=== PATIENT | female | born 1985 ===

== ENCOUNTER 2018-04-03 19:52 | Emergency (ER) | payer OTHER ==
[2018-04-03 20:33] LABS: SQUAMOUS EPITHIAL 7 /hpf (0-5); URINE BACTERIA OCC (<OCC); URINE BILIRUBIN NEGATIVE (NEGATIVE); URINE BLOOD 1+ (NEGATIVE); URINE CLARITY Hazy (Clear); URINE COLOR Yellow (YELLOW); URINE GLUCOSE (UA) NORMAL (Normal); URINE PROTEIN 1+ mg/dL (NEGATIVE); URINE UROBILINOGEN NORMAL mg/dL (0.2-1.0)
[2018-04-03 20:39] LABS: URINE LEUKOCYTE ESTERASE 2+ Leu/uL (Negative)
[2018-04-03] MEDS ORDERED: cefTRIAXone (Rocephin) 250 mg Inj IM STA (21:18)
--- NOTE | 2018-04-03 21:47 | C.PDOC ---
History Of Present Illness 32 y/o female , with iud for almost one year, c/o dyspareunia x 3 months with left pelvic pain and today with dysuria x 1 days. denies vaginal discharge. sts she has one partner. last felt iud string in September. no fever or chills. no nausea or vomiting. <Laura Amaya - Last Filed: 04/03/18 22:38> History Per: Patient History/Exam Limitations: no limitations Onset/Duration Of Symptoms: Days (90) Current Symptoms Are (Timing): Still Present Severity: Moderate Quality Of Discomfort: Unable To Describe Associated Symptoms: Urinary Symptoms. denies: Fever, Chills, Nausea, Vomiting, Loss Of Appetite <Laura Amaya - Last Filed: 04/03/18 22:38> <Guerita White - Last Filed: 04/03/18 23:47> Time Seen by Provider: 04/03/18 20:16 Chief Complaint (Nursing): Female Genitourinary Past Medical History Reviewed: Historical Data, Nursing Documentation, Vital Signs Vital Signs: Last Vital Signs Temp 98.4 F 04/03/18 20:01 Pulse 95 H 04/03/18 20:01 Resp 20 04/03/18 20:01 BP 104/74 04/03/18 20:01 Pulse Ox 100 04/03/18 20:01 - Medical History PMH: Migraine Family History: States: Unknown Family Hx - Social History Hx Alcohol Use: No Hx Substance Use: No <Laura Amaya - Last Filed: 04/03/18 22:38> Vital Signs: Last Vital Signs Temp 98 F 04/03/18 23:42 Pulse 78 04/03/18 23:42 Resp 18 04/03/18 23:42 BP 100/70 04/03/18 23:42 Pulse Ox 100 04/03/18 23:42 <Guerita White - Last Filed: 04/03/18 23:47> Review Of Systems Constitutional: Negative for: Fever, Chills Cardiovascular: Negative for: Chest Pain Respiratory: Negative for: Cough, Shortness of Breath Gastrointestinal: Positive for: Abdominal Pain. Negative for: Nausea, Vomiting Skin: Negative for: Rash Neurological: Negative for: Weakness, Numbness <Laura Amaay - Last Filed: 04/03/18 22:38> Physical Exam - Physical Exam Appears: Non-toxic, No Acute Distress Skin: Warm, Dry Head: Atraumatic, Normacephalic Oral Mucosa: Moist Neck: Supple Gastrointestinal/Abdominal: Bowel Sounds, Soft, No Tenderness, No Guarding, No Rebound Pelvic: Normal External Exam, Vaginal Discharge (yellowish thick ), Cervical Motion Tenderness, Adnexal Tenderness (left), Other (no iud string seen) Neurological/Psych: Oriented x3, Normal Speech, Normal Cognition <Laura Amaya - Last Filed: 04/03/18 22:38> ED Course And Treatment O2 Sat by Pulse Oximetry: 100 <Laura Amaya - Last Filed: 04/03/18 22:38> Medical Decision Making Medical Decision Making: pt with iud with dyspareunia, yellow d/c in vault with cmt. ua with signs of infection. discussed with Dr Dave Gibson, nc manager ; recommends pelvic us to eval adnexal tenderness and look for iud, as well as to tx for sti Dr White to disposition pt after sonogram resulted. <Laura Amaya - Last Filed: 04/03/18 22:38> Disposition Counseled Patient/Family Regarding: Studies Performed, Diagnosis, Need For Followup, Rx Given - Disposition Disposition Time: 22:38 (\) <Laura Amaya - Last Filed: 04/03/18 22:38> Counseled Patient/Family Regarding: Studies Performed, Diagnosis, Need For Followup, Rx Given - Disposition Disposition Time: 23:46 <Guerita White - Last Filed: 04/03/18 23:47> - Disposition Referrals: [facility] [Outside] Disposition: HOME/ ROUTINE Condition: GOOD Additional Instructions: Debe seguir con la ginecologa en [place] la prxima semana. Debe usar un mtodo anticonceptivo adicional hasta que el DIU sea revisado por un gineclogo. Jose Cruz los medicamentos segn lo prescrito. Beber ms lquidos. Recomiende las relaciones sexuales homosexuales hasta que las rosa el gineclogo, y tambin debe consultar hollis mdico. You need to follow up with gynecology at [place] in the next week. You need to use an additional form of control until IUD checked by element setter. Take medications as prescribed.Drink increased fluids. Recommend nosexual intercourse until seen by element setter- and cici de la garza be checked out as well. Prescriptions: Fluconazole [Diflucan] 150 mg PO ONCE #1 tab Ibuprofen [Motrin] 600 mg PO TID #30 tab Nitrofurantoin Macrocrystals [Macrobid] 100 mg PO BID #14 cap Instructions: Urinary Tract Infection, Adult (DC), Acute Pelvic Pain (DC) Forms: Gen Discharge Inst Kittitian, [facility] (Kittitian) - Clinical Impression Clinical Impression: UTI (urinary tract infection), Cervicitis, Pelvic pain
[2018-04-04 01:12] VITALS: BP 100/70; PULSE 78; RESP 18; TEMP 98; O2SAT 100
--- NOTE | 2018-04-04 10:53 | US ---
Date of service: 04/03/2018 HISTORY: Left holli pelvic pain. Nonvisualization IUD strings. LMP 02/25/2018. COMPARISON: None available. TECHNIQUE: Transvaginal only. Real -time technique with 2D, duplex and color Doppler FINDINGS: UTERUS: Measures 3.8 x 4.1 x 7.4 cm. Normal in size and appearance. No fibroid or other mass lesion seen. ENDOMETRIUM: Measures 12.3 all mm in diameter. Intrauterine contraceptive device (IUD) identified CERVIX: No cervical abnormality identified. RIGHT OVARY: Measures 2.1 x 2.7 x 2.8 cm. No solid mass. Normal flow. Subcentimeter cyst 6 x 7 mm. LEFT OVARY: Measures 1.7 x 2.2 x 2.6 cm. No solid mass. Normal flow. Simple cyst 8 x 10 mm. FREE FLUID: No significant free fluid noted. OTHER FINDINGS: None. IMPRESSION: Confirmation of IUD centrally within the endometrial canal. Additional benign and/or incidental findings described above. Concordant results (preliminary interpretation) provided by [employer]. Procedure Completed: 22:25 Preliminary Report: Dictated and Authenticated: 23:43. Final Interpretation: 10:49. April 04, 2018
== END 2018-04-03 23:51 | disposition home or self-care (01) ==
LOC: C.ER 19:52
DX: N39.0 Urinary tract infection, site not specified (principal); N72 Inflammatory disease of cervix uteri; R10.2 Pelvic and perineal pain
CPT/HCPCS: 76830; 76856; 81001; 87070; 87086; 87491; 87591; 96372; 99284; J0696

== ENCOUNTER 2018-05-09 10:05 | Emergency (ER) | payer OTHER ==
[2018-05-09 10:18] VITALS: BP 117/69; PULSE 87; RESP 18; TEMP 98; O2SAT 98
--- NOTE | 2018-05-09 10:39 | C.PDOC ---
History Of Present Illness 32 y/o old female presents to the ED complaining of itching and burning sensation on the external area of the vagina and discomfort on urination for one day. Denies any abdominal pain, diarrhea, vomiting, nausea, fever, chills, back pain, chest pain, or shortness of breath. Patient was seen in March for the same complaints. Records from 04/03/18 - , with iud for almost one year, c/o dyspareunia x 3 months with left pelvic pain and today with dysuria x 1 days. GIVEN MACROBID, NEG UCX Time Seen by Provider: 05/09/18 10:37 Chief Complaint (Nursing): Abdominal Pain History Per: Patient History/Exam Limitations: no limitations Onset/Duration Of Symptoms: Days (1) Current Symptoms Are (Timing): Still Present Associated Symptoms: Urinary Symptoms (discomfort, itching, burning on urination ). denies: Fever, Chills, Nausea, Vomiting, Diarrhea, Chest Pain Additional History Per: Patient, Prior Records Past Medical History Reviewed: Historical Data, Nursing Documentation, Vital Signs Vital Signs: Last Vital Signs Temp 98 F 05/09/18 10:16 Pulse 87 05/09/18 10:16 Resp 18 05/09/18 10:16 BP 117/69 05/09/18 10:16 Pulse Ox 98 05/09/18 10:16 - Medical History PMH: Migraine Surgical History: No Surg Hx Family History: States: No Known Family Hx - Social History Hx Alcohol Use: No Hx Substance Use: No - Immunization History Hx Tetanus Toxoid Vaccination: No Hx Influenza Vaccination: No Hx Pneumococcal Vaccination: No Review Of Systems Except As Marked, All Systems Reviewed And Found Negative. Constitutional: Negative for: Fever, Chills Cardiovascular: Negative for: Chest Pain Respiratory: Negative for: Shortness of Breath Gastrointestinal: Negative for: Nausea, Vomiting, Abdominal Pain, Diarrhea Genitourinary: Positive for: Dysuria, Other (itching and burning sensation on the external area of vagina ). Negative for: Hematuria, Vaginal Discharge, Vaginal Bleeding Musculoskeletal: Negative for: Back Pain Physical Exam - Physical Exam Appears: Non-toxic, No Acute Distress Skin: Warm, Dry, No Rash Head: Normacephalic Eye(s): bilateral: Normal Inspection Nose: Normal Oral Mucosa: Moist Neck: Supple Chest: Symmetrical Cardiovascular: Rhythm Regular Respiratory: Normal Breath Sounds, No Rales, No Rhonchi, No Wheezing Gastrointestinal/Abdominal: Soft, No Tenderness Extremity: Bilateral: Atraumatic, Normal Color And Temperature, Normal ROM Neurological/Psych: Oriented x3, Normal Speech Gait: Steady ED Course And Treatment - Laboratory Results Result Diagrams: 05/09/18 10:37 05/09/18 10:37 O2 Sat by Pulse Oximetry: 98 (RA) Pulse Ox Interpretation: Normal Progress - Data Reviewed Data Reviewed: Old records Medical Decision Making Medical Decision Making: Plan - Bloodwork - UA Disposition Counseled Patient/Family Regarding: Diagnosis, Need For Followup, Rx Given - Disposition Referrals: [facility] [Outside] [facility] [Outside] Disposition: HOME/ ROUTINE Disposition Time: 10:56 Condition: GOOD Prescriptions: Clotrimazole/Betamethasone [Lotrisone] 15 gm EXT BID #1 tube Nitrofurantoin Macrocrystals [Macrobid] 1 cap PO BID #14 cap Instructions: Vaginal Yeast Infection (DC) Forms: [employer] [facility] (Amharic) Print Language: BELARUSIAN - Clinical Impression Clinical Impression: UTI (urinary tract infection), Vaginitis - Scribe Statement The provider has reviewed the documentation as recorded by the Scribe Deana Huertas All medical record entries made by the Scribe were at my direction and personally dictated by me. I have reviewed the chart and agree that the record accurately reflects my personal performance of the history, physical exam, medical decision making, and the department course for this patient. I have also personally directed, reviewed, and agree with the discharge instructions and disposition.
[2018-05-09 10:41] LABS: BASO # 0.1 K/uL (0.0-0.2); BASO % 0.9 % (0.0-2.0); EOS # 0.1 K/uL (0.0-0.7); EOS % 1.8 % (0.0-4.0); MEAN CELL VOLUME 88.1 fL (81.0-99.0); MEAN CORPUSCULAR HEMOGLOBIN 30.8 pg (27.0-31.0); MEAN CORPUSCULAR HGB CONC 34.9 g/dL (33.0-37.0); MONO # 0.5 K/uL (0.0-0.8); MONO % 6.3 % (0.0-10.0); RBC 4.24 Mil/uL (3.80-5.20); RED CELL DISTRIBUTION WIDTH 13.2 % (11.5-14.5); WHITE BLOOD COUNT 7.7 K/uL (4.8-10.8)
[2018-05-09 10:46] LABS: SQUAMOUS EPITHIAL 7 /hpf (0-5); URINE BACTERIA OCC (<OCC); URINE BILIRUBIN NEGATIVE (NEGATIVE); URINE BLOOD 1+ (NEGATIVE); URINE CLARITY Hazy (Clear); URINE COLOR Yellow (YELLOW); URINE GLUCOSE (UA) NORMAL (Normal); URINE LEUKOCYTE ESTERASE 3+ Leu/uL (Negative); URINE PROTEIN NEGATIVE (NEGATIVE); URINE UROBILINOGEN NORMAL mg/dL (0.2-1.0)
[2018-05-09 10:47] LABS: HCG,QUALITATIVE URINE NEGATIVE (NEGATIVE)
[2018-05-09 11:00] LABS: ALB/GLOB RATIO 1.5 (1.0-2.1); ALBUMIN 5.3 g/dL (3.5-5.0); ALT/SGPT 25 U/L (9-52); AST/SGOT 30 U/L (14-36); BLOOD UREA NITROGEN 15 mg/dL (7-17); CALCIUM 9.7 mg/dl (8.6-10.4); GFR NON-AFRICAN AMERICAN > 60
== END 2018-05-09 11:08 | disposition home or self-care (01) ==
LOC: C.ER 10:05
DX: N39.0 Urinary tract infection, site not specified (principal); N76.0 Acute vaginitis